=== PATIENT | female | born 1945 | race Caucasian/White ===

== ENCOUNTER 2017-03-28 15:23 | Outpatient (CLI) | payer OTHER ==
--- NOTE | 2017-03-28 16:07 | DIAGNOSTIC IMAGING REPORT ---
PROCEDURE: US VENOUS - RIGHT EXT INDICATION: RIGHT LEG PAIN, R/O DVT TECHNIQUE: Duplex sonography of the deep venous system in the right lower extremity was performed. Compression and augmentation techniques were used. COMPARISON: None. FINDINGS: Normal compression of the greater saphenous, common femoral, superficial femoral, popliteal, peroneal, and posterior tibial veins. Normal augmentation. There is no evidence of superficial or deep venous thrombosis. No evidence of a popliteal cyst. IMPRESSION: 1. Negative venous ultrasound of the right lower extremity.
== END 2017-03-28 23:00 | disposition home or self-care (01) ==
LOC: US SRH 15:23
DX: M79.604 Pain in right leg (principal)